=== PATIENT | male | born 1970 | race Hispanic/Latino ===

== ENCOUNTER 2022-01-04 08:01 | Emergency (ER) | payer SELFPAY ==
[2022-01-04] MEDS ORDERED: Ibuprofen 200 MG TAB ONE (08:31)
[2022-01-04 08:59] LABS: #Eosinphils 0.1 thou/uL (0.0-0.7); #Lymphocytes 0.3 thou/uL (1.20-3.40); #Monocytes 0.2 thou/uL (0.11-0.59); #Neutrophils 13.8 thou/uL (1.40-6.50); %Basophils 0.3 % (0.0-1.0); %Eosinophils 0.4 % (0.0-10.0); %Lymphocytes 1.9 % (21.0-51.0); %Monocytes 1.2 % (0.0-10.0); %Neutrophils 96.3 % (42.0-75.0); Hemoglobin 13.8 g/dL (14.0-18.0); Mean Corpuscular HGB CONC 33.2 g/dL (32.0-36.0); Mean Corpuscular Hemoglobin 34.5 pg (27.0-31.0); Mean Platelet Volume 14.7 fL (7.4-10.4); Platelet Count 99 10x3/uL (130-400); Red Blood Cell (RBC) Count 4.01 mill/uL (4.70-6.10); White Blood Cell (WBC) Count 14.4 10x3/uL (4.8-10.8)
[2022-01-04] MEDS ORDERED: Iopamidol 370 76% 100 ML VIAL ONE (09:00)
[2022-01-04 09:05] LABS: ALT (SGPT) 99 U/L (8-55); AST (SGOT) 74 U/L (5-34); Albumin 3.5 g/dL (3.5-5.0); Alkaline Phosphatase 571 U/L (40-110); Anion Gap 15 mmol/L (10-20); BUN (Urea Nitrogen) 22 mg/dL (8.4-25.7); Bilirubin, Total 0.6 mg/dL (0.2-1.2); Calc. Creatinine Clearance 0 mL/min (70-130); Calcium 8.6 mg/dL (7.8-10.44); Carbon Dioxide 22 mmol/L (22-29); Chloride 98 mmol/L (98-107); Estimated GFR 86; Globulin 3.5 g/dL (2.4-3.5); Glucose 329 mg/dL (70-105); Potassium 3.3 mmol/L (3.5-5.1); Sodium 132 mmol/L (136-145)
[2022-01-04] MEDS ORDERED: Sodium Chloride 0.9% 250 ML 250 ML ONE (09:32)
[2022-01-04] MEDS ORDERED: Azithromycin 500 MG VIAL ONE (09:32)
[2022-01-04] MEDS ORDERED: Sodium Chloride 0.9% 100 ML ONE (09:32)
[2022-01-04] MEDS ORDERED: cefTRIAXone\\ROCEPHIN 2 GM VIAL ONE (09:32)
[2022-01-04 09:39] LABS: Base Excess-Venous -3.5 mmol/L (-2.0 to 3.0); Bicarbonate (HCO3v) 18.8 mmol/L (22.0-28.0); CO2 Tension (PvCO2) 26.4 mmHg (42.0-51.0); Calcium, Ionized 1.03 mmol/L (1.15-1.33); Chloride 102 mmol/L (98-107); Hemoglobin - Calc 13.8 g/dL (14.0-18.0); Potassium 3.1 mmol/L (3.5-5.1); Sodium 135 mmol/L (138-145); T. Carbon Dioxide 19.6 mmol/L (22.0-28.0); vO2 Saturation-calc 95.7 % (60.0-85.0)
[2022-01-04 09:47] LABS: Macrocytosis SLIGHT = 6-15 cells (100X) (0-5/hpf); Stomatocytes SLIGHT = 2-5 cells (100X) (0-1/hpf)
[2022-01-04] MEDS ORDERED: Sodium Chloride 0.9% 2,000 ML ONE (10:00)
[2022-01-04 10:26] LABS: Bilirubin Negative (Negative); Blood, Urine Negative (Negative); Clarity Clear (Clear); Glucose, Urine (Dipstick) >=1000 mg/dL (Negative); Ketone, Urine 40 mg/dL (Negative); Leukocyte Negative (Negative); Nitrite Negative (Negative); Protein, Urine (Dipstick) Negative (Neg-Trace)
[2022-01-04] MEDS ORDERED: Oseltamivir 75 MG CAP ONE (10:29)
[2022-01-04 11:34] LABS: Lactic Acid 1.9 mmol/L (0.5-2.2)
[2022-01-04 17:34] LABS: Hemoglobin A1c 11.8 % (4.0-6.0)
== END 2022-01-04 11:44 | disposition home or self-care (01) ==
LOC: NAV ERS 08:01
DX: J10.1 Influenza due to other identified influenza virus with other respiratory manifestations (principal); K76.0 Fatty (change of) liver, not elsewhere classified; E11.9 Type 2 diabetes mellitus without complications; J98.11 Atelectasis; R00.0 Tachycardia, unspecified; E86.9 Volume depletion, unspecified; Z20.822 Contact with and (suspected) exposure to COVID-19
CPT/HCPCS: 36416; 71046; 74177; 80053; 81003; 82010; 82330; 82803; 83036; 83605; 85025; 87040; 87149; 87804; 93005; 94799; 96361; 96365; 96367; J0456; J0696; J3490; J7050; Q9967; U0003; U0005